=== PATIENT | male | born 1955 | race Caucasian/White ===

== ENCOUNTER 2021-02-15 08:20 | Emergency (ER) | payer MEDICARE ==
[~2021-02-15] VITALS: Ht 172.7 cm; Wt 77.1 kg
--- NOTE | 2021-02-15 08:20 | NUR ---
BIB [facility] FROM HOME,SYNCOPAL EPISODE WHILE SITTING,BLOOD SUGAR 142. PT IS DIAPHORETIC. PT VITALS ARE WITHIN NORMAL LIMITS. BREATHING IS EVEN AND UNLABORED. BLANKET PROVIDED FOR COMFORT. LABS WERE DRAWN AND SENT. EKG WAS PERFORMED BY TECH. DR ERICKSON AT BEDSIDE
[2021-02-15] MEDS ORDERED: IV NS 0.9% 1,000 ML BAG IV ONE (09:00)
[2021-02-15 09:17] LABS: BASOPHILS % (AUTO) 0.1 % (0.0-2.0); EOSINOPHILS % (AUTO) 0.1 % (0.0-6.0); HEMATOCRIT 42 % (39-51); HEMOGLOBIN 14.1 g/dL (13.5-17.5); LYMPHOCYTES # (AUTO) 1.5 K/uL (0.8-4.8); LYMPHOCYTES % (AUTO) 25.8 % (20.0-44.0); MEAN CORPUSCULAR HGB CONC 33 g/dl (31.0-36.0); MEAN CORPUSCULAR VOLUME 84 fL (80-96); MONOCYTES # (AUTO) 0.5 K/uL (0.1-1.30); MONOCYTES % (AUTO) 8.2 % (2.0-12.0); NEUTROPHILS # (AUTO) 3.9 K/uL (1.8-8.9); NEUTROPHILS % (AUTO) 65.8 % (43.0-81.0); PLATELET COUNT (AUTO) 157 K/uL (150-450); RED BLOOD CELL COUNT(AUTO) 5.05 MIL/uL (4.5-6.0); WHITE BLOOD COUNT (AUTO) 5.9 K/uL (4.3-11.0)
--- NOTE | 2021-02-15 09:24 | NUR ---
X RAY AT BEDSIDE
[2021-02-15 09:35] LABS: ALBUMIN 3.1 g/dL (3.4-5.0); BILIRUBIN,DIRECT 0.1 mg/dL (0.0-0.2); BILIRUBIN,TOTAL 0.9 mg/dL (0.2-1.0); CALCIUM, SERUM 8.4 mg/dL (8.5-10.1); POTASSIUM 3.9 mmol/L (3.5-5.1); TOTAL PROTEIN, SERUM 6.9 g/dL (6.4-8.2)
--- NOTE | 2021-02-15 09:38 | NUR ---
PT RETURNED FROM CT
--- NOTE | 2021-02-15 10:13 | NUR ---
COVID ANTIGEN SWAB DONE AND SENT TO THE LAB
[2021-02-15 12:29] VITALS: BP 128/60
--- NOTE | 2021-02-15 12:29 | NUR ---
Patient discharged to home in stable condition. Written and verbal after care instructions given. Patient verbalizes understanding of instruction.IV removed. Catheter intact and site benign. Pressure and 4x4 applied to site. No bleeding noted.
== END 2021-02-15 12:30 | disposition home or self-care (01) ==
LOC: ER 08:26
DX: U07.1 COVID-19 (principal); R55 Syncope and collapse; E16.2 Hypoglycemia, unspecified; Z85.89 Personal history of malignant neoplasm of other organs and systems; I51.7 Cardiomegaly; I67.2 Cerebral atherosclerosis
CPT/HCPCS: 36415; 70450; 71045; 80048; 80076; 82962; 85025; 87426; 93005; 96360; 99285; J7030; C9803